=== PATIENT | male | born 1980 | race Caucasian/White ===

== ENCOUNTER 2018-07-04 08:23 | Emergency (ER) | payer SELFPAY ==
[~2018-07-04] VITALS: Ht 190.5 cm; Wt 96.2 kg
[~2018-07-04 08:23] MED LIST: MINO100C PO
[2018-07-04] MEDS ORDERED: IBUPROFEN 400 MG TABLET. PO ONE (09:00)
[2018-07-04] MEDS ORDERED: LIDOCAINE 2% 20 ML VIAL. IJ ONE (09:00)
[2018-07-04] MEDS ORDERED: DIPHTH,PERTUSS(ACELL),TET TOX 0.5 ML DISP.SYRIN. VAX IM ONE (09:00)
--- NOTE | 2018-07-04 09:05 | RAD ---
FINGER(S) RIGHT History: Injury/laceration distally to fifth digit this AM. Swelling. Hand smashed in barn door. pt shielded
. Comparison: None are available Comminuted fracture of the middle phalanx of the fifth finger. The area is displacement, the head of the middle phalanx is displaced posteriorly and angled posteriorly. There appears to be an associated soft tissue injury here as well. Old appearing fracture deformity of the fifth metacarpal. IMPRESSION: Comminuted displaced fracture of the fifth middle phalanx. Electronically signed by: Armin Avilez MD (07/04/2018 9:01 AM) [facility]
[2018-07-04] MEDS ORDERED: IBUP800T19 PO (09:39)
[2018-07-04] MEDS ORDERED: CEPH-264 PO (09:39)
[2018-07-04] MEDS ORDERED: HYDR-3165 PO (09:39)
--- NOTE | 2018-07-04 09:39 | PHYS DOC ---
Past History Past Medical History: No Pertinent History Past Surgical History: Other Smoking: Non-smoker Alcohol Use: Occasionally Drug Use: None Adult General Chief Complaint Chief Complaint: FINGER INJURY [facility] HPI Patient is a 38 year old right handed male who presents with complaining of injury to right fifth finger. Patient states he smashed his right fifth finger between a sliding door and trailer without other injuries. Patient complaining of moderate pain and laceration in his finger. Patient is not up-to-date with tetanus immunization. Review of Systems Review of Systems Constitutional: Denies fever or chills [] Eyes: Denies change in visual acuity, redness, or eye pain [] HENT: Denies nasal congestion or sore throat [] Respiratory: Denies cough or shortness of breath [] Cardiovascular: No additional information not addressed in HPI [] GI: Denies abdominal pain, nausea, vomiting, bloody stools or diarrhea [] : Denies dysuria or hematuria [] Musculoskeletal: Denies back pain or joint pain [] Integument: Denies rash or skin lesions [] Neurologic: Denies headache, focal weakness or sensory changes [] Endocrine: Denies polyuria or polydipsia [] All other systems were reviewed and found to be within normal limits, except as documented in this note. Current Medications Current Medications Current Medications Medications (Trade) Dose Ordered Sig/Prabhakar Start Time Stop Time Status Last Admin Dose Admin Diphtheria/ Tetanus/Acell Pertussis (Boostrix) 0.5 ml ONCE ONCE 07/04/18 09:00 07/04/18 09:01 DC 07/04/18 09:00 0.5 ML Ibuprofen (Motrin) 800 mg 1X ONCE 07/04/18 09:00 07/04/18 09:01 DC 07/04/18 08:58 800 MG Lidocaine HCl 20 ml 1X ONCE 07/04/18 09:00 07/04/18 09:01 DC 07/04/18 09:00 20 ML Allergies Allergies Allergies Coded Allergies Type Severity Reaction Last Updated Verified No Known Drug Allergies 11/12/14 No Physical Exam Physical Exam Constitutional: Well developed, well nourished, mild distress, non-toxic appearance. [] HENT: Normocephalic, atraumatic Eyes: PERRLA, EOMI, conjunctiva normal, no discharge. [] Neck: Normal range of motion, no tenderness, supple, no stridor. [] Cardiovascular:Heart rate regular rhythm, no murmur [] Lungs & Thorax: Bilateral breath sounds clear to auscultation [] Skin: Warm, dry, no erythema, no rash. [] Back: No tenderness, no CVA tenderness. [] Extremities: Right fifth finger with laceration on volar side of the middle phalanx with tenderness and mild deformity, no tendon injury, painful range of motion, no cyanosis, no clubbing, , no edema. [] Neurologic: Alert and oriented X 3, normal motor function, normal sensory function, no focal deficits noted. [] Psychologic: Affect normal, judgement normal, mood normal. [] EKG EKG [] Radiology/Procedures Radiology/[place] [address] IMAGING REPORT Signed PATIENT: LEANDRA ZHOU ACCOUNT: [id number] : 1980 LOCATION: ER AGE: 38 SEX: M EXAM STATUS: REG ER ORD. PHYSICIAN: AMANDA BASS MD REASON: fifth finger injury PROCEDURE: FINGER(S) RIGHT FINGER(S) RIGHT History: Injury/laceration distally to fifth digit this AM. Swelling. Hand smashed in barn door. pt shielded
. Comparison: None are available Comminuted fracture of the middle phalanx of the fifth finger. The area is displacement, the head of the middle phalanx is displaced posteriorly and angled posteriorly. There appears to be an associated soft tissue injury here as well. Old appearing fracture deformity of the fifth metacarpal. IMPRESSION: Comminuted displaced fracture of the fifth middle phalanx. Electronically signed by: Armin Avilez MD (07/04/2018 9:01 AM) [facility] DICTATED AND SIGNED BY: ARMIN AVILEZ MD DATE: 07/04/18 0859 CC: AMANDA BASS MD; QUENTIN VALADEZ ~ Course & Med Decision Making Course & Med Decision Making Pertinent Labs and Imaging studies reviewed. (See chart for details) [] Dragon Disclaimer Dragon Disclaimer This electronic medical record was generated, in whole or in part, using a voice recognition dictation system. Laceration Repair Lac Repair Indication: Right fifth finger laceration Procedure: The patient was placed in the appropriate position and anesthesia around the right fifth finger laceration in medial phalanx volar side was given , the area was then cleaned and debrided, the laceration was repaired with 2 sutures of 4-0 nylon. The wound area was then dressed with [WOUND COVERING]. The fracture was manually reduced and the splint was placed. Total repaired wound length: 1 cm Other Items: [OTHER ITEMS] The patient tolerated the procedure well Complications:none Departure Departure: Impression: Primary Impression: Open fracture of finger of right hand Disposition: HOME, SELF-CARE (at 0934) Condition: IMPROVED Referrals: QUENTIN VALADEZ (PCP) Patient Instructions: Finger Fracture, Sutured Wound Care Additional Instructions: Follow-up with Dr. Davidson managed services consultant orthopedic physician, call [phone] in one or 2 days Keep wound clean and dry Return to ER if not getting better Scripts Hydrocodone Bit/Acetaminophen (NORCO 5-325 TABLET) 1 Each Tablet 1 TAB PO PRN Q6HRS PRN for PAIN, #14 TAB 0 Refills Prov: AMANDA BASS MD 07/04/18 Cephalexin (KEFLEX) 500 Mg Capsule 2 CAP PO Q12HR for infection, #28 CAP Prov: AMANDA BASS MD 07/04/18 Ibuprofen (IBUPROFEN) 800 Mg Tablet 1 TAB PO TID for pain, #30 TAB Prov: AMANDA BASS MD 07/04/18 AMANDA BASS MD Jul 04, 2018 09:39
[2018-07-04 09:47] VITALS: BP 135/77
== END 2018-07-04 09:47 | disposition home or self-care (01) ==
LOC: ER 08:23
DX: S62.626B Displaced fracture of middle phalanx of right little finger, initial encounter for open fracture (principal); W23.0XXA Caught, crushed, jammed, or pinched between moving objects, initial encounter; Y93.89 Activity, other specified; Y92.89 Other specified places as the place of occurrence of the external cause; Y99.8 Other external cause status
CPT/HCPCS: 26725; 73140; 90471; 90715; 99284-25; J2001